=== PATIENT | male | born 1995 | race Caucasian/White ===

== ENCOUNTER 2019-03-04 09:56 | Emergency (ER) | payer OTHER ==
[~2019-03-04] VITALS: Ht 175.3 cm; Wt 75.0 kg
--- NOTE | 2019-03-04 10:43 | REP ---
Right hand series: Four views. History: Pain after a fall. Findings: Four views of right hand demonstrate overall normal mineralization. No acute fracture or subluxation is visible. There is moderate soft tissue swelling over the distal metacarpals on the lateral film. There is old post-traumatic deformity involving the distal end of the proximal phalanx of the long finger at the PIP joint. There is swelling about the PIP joint. An accessory ossicle is seen at the ulnar aspect of this articulation as well. These bony changes appear to be old. The lateral radiograph show soft tissue swelling at the PIP joint of the index as well as the long finger in addition to the metacarpal swelling. Impression: Several areas of soft tissue swelling as above. Old post-traumatic changes at the PIP joint of the long finger. No acute fracture. Electronically Signed by Hernán Wu MD 03/04/2019 02:36 P
[2019-03-04] MEDS ORDERED: CEPHALEXIN 500 MG CAP PO ONE (11:15)
[2019-03-04] MEDS ORDERED: NAPROXEN 250 MG TAB PO ONE (11:15)
[2019-03-04] MEDS ORDERED: MOBI4TAB PO (11:23)
[2019-03-04] MEDS ORDERED: KEFL500C17 PO (11:23)
[2019-03-04 11:30] VITALS: BP 147/66
== END 2019-03-04 11:34 | disposition home or self-care (01) ==
LOC: M ED 09:56
DX: S60.511A Abrasion of right hand, initial encounter (principal); S60.221A Contusion of right hand, initial encounter; W22.09XA Striking against other stationary object, initial encounter; Y92.89 Other specified places as the place of occurrence of the external cause; Y99.1 Military activity; Z87.828 Personal history of other (healed) physical injury and trauma